=== PATIENT | female | born 1975 | race Caucasian/White ===

== ENCOUNTER 2025-03-26 17:34 | Emergency (ER) | payer OTHER | END 2025-03-26 18:36 | disposition home or self-care (01) | LOC: CSHERS 17:34 | DX: S42.291A Other displaced fracture of upper end of right humerus, initial encounter for closed fracture (principal); S82.91XA Unspecified fracture of right lower leg, initial encounter for closed fracture; V89.2XXA Person injured in unspecified motor-vehicle accident, traffic, initial encounter | CPT/HCPCS: 99283 ==